=== PATIENT | female | born 1995 | race Caucasian/White ===

== ENCOUNTER 2016-08-13 02:25 | Emergency (ER) | payer OTHER ==
[~2016-08-13] VITALS: Ht 152.4 cm; Wt 46.4 kg
[~2016-08-13 02:25] MED LIST: DEPAKOTE500 MG PO
[2016-08-13 02:32] VITALS: BP 123/73
== END 2016-08-13 04:00 | disposition left against medical advice (07) ==
LOC: EME 02:25
DX: M25.562 Pain in left knee (principal); Z53.21 Procedure and treatment not carried out due to patient leaving prior to being seen by health care provider
CPT/HCPCS: 73564